=== PATIENT | male | born 1990 | race Caucasian/White ===

== ENCOUNTER 2022-03-13 02:50 | Emergency (ER) | payer OTHER, SELFPAY ==
--- NOTE | ~2022-03-13 | XR_ITS ---
EXAMINATION: XR CHEST CLINICAL INFORMATION: Cough COMPARISON: 02/13/2019 TECHNIQUE: Frontal view of the chest was obtained. FINDINGS: Lung volumes are low. Patchy retrocardiac opacity. No pleural effusion or pneumothorax. The cardiomediastinal silhouette is unchanged. XR/XR chest 1V IMPRESSION: Low lung volumes. Patchy retrocardiac opacity could represent atelectasis or pneumonia.
[2022-03-13 02:57] VITALS: BP 115/85; BP 133/76; PULSE 100; TEMP 36.6; O2SAT 99; BMI 29.7
--- NOTE | 2022-03-13 03:03 | ED_ITS ---
HPI - Overdose General Chief Complaint: Overdose Stated Complaint: OD Time Seen by Provider: 03/13/22 03:02 Source: EMS Mode of arrival: EMS History of Present Illness HPI Narrative: Patient with history of substance abuse per records uses PCP was found sitting in a car unresponsive was given 12 mg of Narcan intranasally patient woke up denies use of opiates no signs of injury per patient's friend patient did not use PCP today and he was sitting with drug addict in the car Related Data Allergies Allergy/AdvReac Type Severity Reaction Status Date / Time No Known Allergies Allergy Unverified 11/09/19 16:19 Review of Systems Review of Systems: Yes all other systems are reviewed and are negative [facility] Social History Social History Alcohol intake: current Smoked in Last 30 Days: Yes Use of substances other than those prescribed or required for medical reasons: Yes Substance Use Type: Crack/Cocaine and Marijuana Advance Directives: No Advance Directives Information Provided: Yes Physical Exam Vital Signs: Vital Signs: Last Vital Signs Temp 98.2 F 03/13/22 03:37 Pulse 91 03/13/22 03:37 Resp 20 03/13/22 03:37 BP 117/82 03/13/22 03:37 Pulse Ox 96 03/13/22 03:37 O2 Del Method 03/13/22 03:37 BMI result Body Mass Index 29.7 Appearance: Alert. And awake. No acute distress. Eyes: PERRLA, No Nystagmus ENT: Pharynx normal. Oral Mucosa moist Neck: Normal inspection. Neck supple. CVS: Normal heart rate and rhythm. Pulses normal. Respiratory: No respiratory distress. Equal air entry bilateral, no wheezing/rales/rhonchi Abdomen: Soft and nontender. Bowel sounds are present, no mass palpable, no CVA tenderness Skin: Skin warm and dry. Normal skin color. Normal skin turgor. No IVDA baum Extremities: No lower extremity edema. No calf tenderness Neuro: Alert and awake No motor deficit. Medical Decision Making Differential Diagnosis Patient polysubstance abuse denied the use but was sitting with someone who uses drugs and was given to him at this time patient on x3 ambulatory patient patient home with family Lab Data [facility] Lab Attestation statement: I reviewed the patient's lab results. Labs: Lab Results 03/13/22 03/13/22 03/13/22 Range/Units 03:30 03:30 03:30 Urine Opiates Screen Not Detected (Not Detect) Urine Fentanyl Screen POSITIVE H (Not Detect) Ur Barbiturates Screen Not Detected (Not Detect) Ur Phencyclidine Scrn POSITIVE H (Not Detect) Ur Amphetamines Screen Not Detected (Not Detect) U Benzodiazepines Scrn Not Detected (Not Detect) Urine Cocaine Screen POSITIVE H (Not Detect) U Marijuana (THC) Screen POSITIVE H (Not Detect) COVID-19 ([place]) Negative (Negative) COVID-19 Clin Com See Note Influenza Type A (LILIYA) Negative (Negative) Influenza Type B (LILIYA) Negative (Negative) Influenza A & B Note See Note Discharge Plan Discharge Clinical Impression: Drug overdose Patient Disposition: Home, Self-Care Additional Instructions: Your urine was positive for PCP, cocaine, fentanyl, and marijuana Stop using drugs follow with Detox Interventions: [place]-Suicide Risk Severity Scale Last Done: 03/13/22 04:42 ED Discharge Assessment Last Done: 03/13/22 04:43 Discharge Date/Time: 03/13/22 04:42
--- NOTE | 2022-03-13 03:30 | MHC.EDTECH ---
brother Joselito [phone], please call upon D/C for ride home.
[2022-03-13 03:37] VITALS: BP 117/82; PULSE 91; RESP 20; TEMP 36.8; O2SAT 96
--- NOTE | 2022-03-13 03:41 | PC.NURSE ---
Addendum entered by Deisy Daniel 03/13/22 03:43: pt able to maintain airway Original Note: upon arrival pt unable to answer questions, cold to the touch, body tremors
[2022-03-13 03:49] LABS: Amphetamine Screen Urine Not Detected (Not Detect); Barbiturates, Urine Not Detected (Not Detect); Benzodiazepines Screen Urine Not Detected (Not Detect); Cannabinoid Screen Urine POSITIVE (Not Detect); Cocaine Screen Urine POSITIVE (Not Detect); Fentanyl, urine POSITIVE (Not Detect); Opiate Screen Urine Not Detected (Not Detect); Phencyclidine Screen Urine POSITIVE (Not Detect)
[2022-03-13 03:50] LABS: COVID-19 Test Negative (Negative); IDNOW Serial# 16C4AD1C; IDNOW Serial# BCCEAD1C; Influenza A Negative (Negative); Influenza B2 Negative (Negative)
--- NOTE | 2022-03-13 04:44 | PC.NURSE ---
discharge instructions given and explained, pt ambulates safely/independently; no apparent distress
--- NOTE | 2022-03-13 04:58 | PC.NURSE ---
pt alert and oriented
== END 2022-03-13 04:42 | disposition home or self-care (01) ==
PROVIDERS: Emergency Provider Internal Medicine
DX: R40.20 Unspecified coma (principal); T40.991A Poisoning by other psychodysleptics [hallucinogens], accidental (unintentional), initial encounter; T40.5X1A Poisoning by cocaine, accidental (unintentional), initial encounter; T40.411A Poisoning by fentanyl or fentanyl analogs, accidental (unintentional), initial encounter; F14.10 Cocaine abuse, uncomplicated; F16.10 Hallucinogen abuse, uncomplicated; F11.10 Opioid abuse, uncomplicated; Y92.9 Unspecified place or not applicable; Z20.822 Contact with and (suspected) exposure to COVID-19
CPT/HCPCS: 71045; 80307; 87502; 87635; 99283; 99285

== ENCOUNTER 2024-03-05 19:44 | Emergency (ER) | payer MEDICAID, SELFPAY ==
[2024-03-05 19:47] VITALS: BP 148/64; PULSE 105; O2SAT 100; BMI 28.5
--- NOTE | 2024-03-05 20:08 | MHC.EDTECH ---
Patient changed over into [facility] gown. patient belongings on shelf 1 in [facility]
--- NOTE | 2024-03-05 20:21 | ED.OVERDOSE ---
HPI - Overdose General Chief Complaint: Overdose Stated Complaint: OD, 8MG NARCAN, COOPERATIVE PER EMS Time Seen by Provider: 03/05/24 19:54 History of Present Illness HPI Narrative: Patient is a 33-year-old homeless male. History of being found in an alley unresponsive. Had irregular respiration and was given 8 of Narcan. Patient claims that he was drinking alcohol. Also using what he thought was PCP. Patient denies using heroin. Claims that he sniffed the stuff. Never shooting drugs. Related Data Allergies Allergy/AdvReac Type Severity Reaction Status Date / Time No Known Allergies Allergy Verified 03/05/24 19:50 Review of Systems Review of Systems: No chest pain or shortness breath no dizziness PMFSH Past Medical History Attestation statement: The following information was validated with the patient. Social History Social History Alcohol intake: current Smoked in Last 30 Days: Yes Substance Use Type: Opiates Substance Use Frequency: Chronic Longstanding Do you have a plan to hurt others: No Plan Physical Exam Vital Signs: Vital Signs: BMI result Body Mass Index 28.5 Appearance: Alert. Oriented X3. No acute distress. Eyes: Pupils equal, round and reactive to light. ENT: Pharynx normal. Neck: Normal inspection. Neck supple. No lymph nodes noted. No crepitus CVS: Normal heart rate and rhythm. Pulses normal. Normal S1 and S2 Respiratory: No respiratory distress. Breath sounds normal. No Wheezing. No rales Abdomen: Soft and nontender. No rigidity. No distention. good BS x4 Skin: Skin warm and dry. Normal skin color. Normal skin turgor. Extremities: No lower extremity edema. Neurovascular intact to all extremities. No Lacerations. No Rash Neuro: Oriented X 3. No motor deficit. No sensory deficit. Moving all extermities. No slurred speech Medical Decision Making Medical Decision Making MDM Narrative: Patient history of polysubstance abuse. Woke up with Narcan. Question if patient actually took heroin instead of PCP. Patient in no acute distress is homeless. Breathing comfortably. O2 sat is normal. Labs are sent. Narcan was ordered to take home. Will await patient's sobering and monitor patient for at least 2 hours after Narcan use. Patient in no distress. No suicidal homicidal ideation. Use recreational drugs for recreational purposes only. Patient does not want detox at this time Differential Diagnosis Differential Diagnoses: The differential diagnosis associated with the presentation includes Polysubstance abuse, heroin use, PCP use, alcohol use Admission/Observation Consideration of admission/observation: Escalation of care including admission/observation considered Lab Data MDM Lab Attestation statement: I reviewed the patient's lab results. Chronic Conditions Polysubstance abuse Social Determinants Patient?s care significantly limited by Social Determinants of Health including: Alcoholism and drug addiction in family and Problems related to primary support group Discharge Plan Discharge Clinical Impression: Drug overdose, Alcohol intoxication Patient Disposition: Still a Patient Print Language: Tristanian
[2024-03-05 20:34] LABS: MANUAL DIFF FLAG NO
[2024-03-05 20:41] LABS: Basophils Absolute Auto 0.1 X10*3/uL (0.0-0.2); Eosinophils Absolute Auto 0.1 X10*3/uL (0.0-0.4); Eosinophils Percent Auto 1.6 % (0-4); Hematocrit 42.5 % (42.0-52.0); Hemoglobin 14.3 g/dl (14.0-18.0); Imm Gran Abs Auto 0.02 X10*3/uL (0.00-0.03); Imm Gran Pct Auto 0.3 % (0.0-0.4); Lymphocytes Absolute Auto 0.8 X10*3/uL (1.2-4.9); Lymphocytes Percent Auto 11.9 % (20-40); Mean Corpuscular HGB Conc 33.6 g/dl (31.0-36.0); Mean Corpuscular Hemoglobin 25.8 pg (27.0-33.0); Mean Corpuscular Volume 76.7 fL (80.0-98.0); Mean Platelet Volume 9.3 fL (9.4-12.4); Monocytes Absolute Auto 0.6 X10*3/uL (0.1-1.2); Monocytes Percent Auto 8.4 % (2-11); Neutrophils Absolute Auto 5.4 x10*3/uL (2.0-8.3); Neutrophils Percent Auto 76.8 % (45-73); Platelet Count 414 X10*3/uL (160-400); Red Blood Count 5.54 X10*6/uL (4.60-5.80); Red Cell Distribution Width 13.9 % (11.0-16.0); White Blood Count 7.1 X10*3/uL (4.8-10.8)
[2024-03-05 21:05] LABS: Ethanol < 10 mg/dL
[2024-03-05 21:07] LABS: Alanine Aminotransferase 28 U/L (0-40); Albumin Level 4.1 g/dL (3.5-5.0); Alkaline Phosphatase 72 U/L (39-117); Anion Gap 12 (12-20); Aspartate Amino Transferase 27 U/L (5-37); Bilirubin Total 0.3 mg/dL (0.0-1.0); Blood Urea Nitrogen 12 mg/dL (9-16); Carbon Dioxide 23 mmol/L (22-29); Chloride 110 mmol/L (96-108); Creatinine Clr Calc Pharmacy 139.8; Estimated Glomerular Filt Rate > 60; Glucose Random 89 mg/dL (60-115); Potassium 3.8 mmol/L (3.3-5.1); Sodium 141 mmol/L (135-145); Total Protein 6.6 g/dL (6.5-8.0)
[2024-03-05 21:11] LABS: Acetaminophen LAB < 3 mcg/mL (<30); Salicylate < 5.0 mg/dL (15-30)
[2024-03-05] MEDS: Naloxone HCl Nasal TAKE HOME 4 MG SPRAY 8 MG NOSTRILALT (21:13)
[2024-03-05 21:16] LABS: Amphetamine Screen Urine Not Detected (Not Detect); Barbiturates, Urine Not Detected (Not Detect); Benzodiazepines Screen Urine Not Detected (Not Detect); Buprenorphine Scr Not Detected (Not Detect); Cannabinoid Screen Urine POSITIVE (Not Detect); Cocaine Screen Urine POSITIVE (Not Detect); Fentanyl, urine Not Detected (Not Detect); Methadone Screen, Urine Not Detected (Not Detect); Opiate Screen Urine Not Detected (Not Detect); Oxycodone Screen Urine Not Detected (Not Detect); Phencyclidine Screen Urine POSITIVE (Not Detect)
[2024-03-05 21:23] VITALS: BP 139/69; PULSE 88; RESP 16; TEMP 36.8; O2SAT 98
[2024-03-05 21:46] LABS: Influenza A PCR NEGATIVE (Negative); Influenza B PCR NEGATIVE (Negative); Resp Syncy Virus RNA Qual PCR NEGATIVE (Negative); SARS COV2 PCR INHOUSE NEGATIVE (Negative)
== END 2024-03-05 21:30 | disposition home or self-care (01) ==
PROVIDERS: Emergency Provider Emergency Medicine Emergency Medical Services
DX: T40.991A Poisoning by other psychodysleptics [hallucinogens], accidental (unintentional), initial encounter (principal); R40.4 Transient alteration of awareness; Y92.410 Unspecified street and highway as the place of occurrence of the external cause; F10.129 Alcohol abuse with intoxication, unspecified; Y90.9 Presence of alcohol in blood, level not specified; Z59.00 Homelessness unspecified; Z51.81 Encounter for therapeutic drug level monitoring; Z03.818 Encounter for observation for suspected exposure to other biological agents ruled out; Z79.899 Other long term (current) drug therapy
CPT/HCPCS: 0241U; 36415; 80053; 80143; 80179; 80307; 85025; 99285

== ENCOUNTER 2024-03-20 18:38 | Emergency (ER) | payer MEDICAID, SELFPAY ==
[2024-03-20 19:06] VITALS: BP 154/83; PULSE 121; O2SAT 97
[2024-03-20 19:27] VITALS: BP 117/86; PULSE 104; RESP 16; TEMP 36.4; O2SAT 100; BMI 27.9
--- NOTE | 2024-03-20 19:38 | ED.FALL ---
HPI - Fall General Chief Complaint: Fall Stated Complaint: ETOH Time Seen by Provider: 03/20/24 19:35 Source: patient Limitations: no limitations History of Present Illness ED Provider: Janiya Lipscomb PA-C HPI Narrative: 33-year-old male presents after a fall. Patient states he slipped on the ice and subsequently fell. There was no head strike. Patient was ambulatory after the incident. A bystander called EMS. The patient admits to drinking alcohol. Patient has no physical concerns or complaints at this time Related Data Allergies Allergy/AdvReac Type Severity Reaction Status Date / Time No Known Allergies Allergy Verified 03/20/24 19:28 Review of Systems Review of Systems: Yes all other systems are reviewed and are negative Constitutional: Constitutional: Denies fatigue, Denies fever(s) and Denies headache(s) ENT: Denies headache(s) and Denies neck pain Cardiovascular: Cardiovascular: Denies chest pain and Denies dyspnea Respiratory: Respiratory: Denies dyspnea Gastrointestinal: Gastrointestinal: Denies abdominal pain Musculoskeletal: Musculoskeletal: Denies back pain and Denies neck pain Neurologic: Denies headache(s) Endocrine: Endocrine: Denies fatigue [facility] Past Medical History Attestation statement: The following information was validated with the patient. Social History Social History Alcohol intake: current Substance Use Type: Opiates Do you have a plan to hurt others: No Plan Physical Exam Vital Signs: Vital Signs: Last Vital Signs Temp 97.5 F 03/20/24 19:27 Pulse 104 H 03/20/24 19:27 Resp 16 03/20/24 19:27 BP 117/86 03/20/24 19:27 Pulse Ox 100 03/20/24 19:27 O2 Del Method Room Air 03/20/24 19:27 BMI result Body Mass Index 27.9 Const: Other: Alert, well-appearing no evidence of head trauma on exam Orientation/consciousness: patient oriented x3 HEENT: Other: No alcohol halitosis Resp: Effort & Inspection: normal respiratory effort Cardio: Other: Normal peripheral perfusion Skin: Other: Warm dry no rash Neuro: Other: Patient has been ambulating with normal steady gait, he is clinically sober in appearance General: patient oriented x3, gait normal, no focal motor deficits and CN's II-XI intact bilaterally Psych: Other: Calm cooperative Medical Decision Making Medical Decision Making MDM Narrative: 33-year-old male presents after a fall. Patient states he slipped on the ice and subsequently fell. There was no head strike. Patient was ambulatory after the incident. A bystander called EMS. The patient admits to drinking alcohol. Patient has no physical concerns or complaints at this time No relevant chronic issues History: Per patient I have considered the following differential diagnoses: Alcohol intoxication, fracture, dislocation, intracranial hemorrhage Plan: Patient was clinically sober he has been ambulatory since he has arrived, he is completely alert and oriented without alcohol halitosis, there is no evidence of head trauma on exam. I am not holding him here he does not require a medical assessment Discharge Plan Discharge Clinical Impression: Fall from slipping on ice Patient Disposition: Home, Self-Care Print Language: Albanian
[2024-03-20 19:57] VITALS: BP 117/86; PULSE 104; RESP 16; TEMP 36.4; O2SAT 100
--- OUTSIDE RECORDS SUMMARY | 2024-03-20 20:12 | XMS_ITS | Clinical Summary ---
Author Organization [facility] Address [address] [place] [address] Care Team Providers Care Network Professional Name Role Phone Unavailable Primary Care Provider Unavailabl e Source Comments PLEASE NOTE, if this patient is a minor, it may be UNLAWFUL to discuss sensitive information that is contained in these records (such as FAMILY PLANNING, MENTAL HEALTH or SUBSTANCE ABUSE) with the minor patient's parent or other person without the patient's specific authorization.[facility] Allergies No known active allergies Medications No known medications Active Problems No known active problems Social History Tobacco Use Types Packs/Day Years Used Date Smoking Tobacco: Never Smokeless Tobacco: Never Tobacco Cessation:Counseling Given: Not Answered Social Connections Answer Date Recorded Connectedness 0 12/28/2023 Financial Resource Strain Answer Date R ecorded Financial Resource Strain 0 2023 Stress Answer Date Recorded Stress 0 12/28/2023 Physical Activity Answer Date Recorded Physical Activity 0 12/28/2023 Food Insecurity Answer Date Recorded Food 0 12/28/2023 Transportation Needs Answer Date Record ed Transportation 0 12/28/2023 Housing Stability Answer Date Recorded Housing 0 12/28/2023 Safety and Environment Answer Date Jon rded Safety 0 12/28/2023 Utilities Answer Date Recorded Utilities 0 12/28/2023 Employment Answer Date Recorded Stress 0 12/28/2023 Sex and Gender Information Value Date Recorded Sex Assigned at Not on file Legal Sex Male 8:52 AM PDT Gender Identity Not on file Sexual Orientation Not on file Last Filed Vital Signs Vital Sign Reading Time Taken Comments Blood Pressure 197/103 03/04/2022 10:42 AM EST Pulse 85 03/04/2022 10:42 AM EST Temperature - - Respiratory Rate - - Oxygen Saturation - - Inhaled Oxygen Concentration - - Weight - - Height - - Body Mass Index - - Plan of Treatment Health Maintenance Due Date Last Done Comments Dental FMX/Pano 1989 Dental Prophy 1989 Hepatitis C Screening 1989 Tobacco Screening 1989 HIV Screening 2004 Annual Preventive Care Visit 08/01/2007 Imm-DTaP/Tdap/Td (1 - Tdap) 2008 Imm-Hepatitis B (1 of 3 - 19+ 3-dose series) 9 Dental BW 09/25/2022 09/23/2021 Dental Examination 09/25/2022 09/23/2021 Dental Perio Charting 09/25/2022 09/23/2021 Hypertension Screening (#1) 03/04/2023 [id number] ( season) 2023 Imm-Influenza (#1) 2023 Alcohol and Drug Screen 02/23/2024 Depression Annual Screen 02/23/2024 Procedures Procedure Name Priority Date/Time Associated Diagnosis Comments COMP PERIODONTAL EVALUATION - NEW/EST PATIENT Routine 09/23/2021 9:00 AM EDT Gingivitis, chronic, plaque induced BITEWINGS - FOUR RADIOGRAPHIC IMAGES Routine 09/23/2021 9:00 AM EDT Gingivitis, chronic, plaque induced PERIODIC ORAL EVALUATION ESTABLISHED PATIENT Routine 09/23/2021 9:00 AM EDT Gingivitis, chronic, plaque induced from Last 3 Months or Most Recently Relevant to Health Maintenance Insurance [address] [employer]
== END 2024-03-20 19:58 | disposition home or self-care (01) ==
PROVIDERS: Emergency Provider Emergency Medicine
DX: F10.90 Alcohol use, unspecified, uncomplicated (principal); Y90.9 Presence of alcohol in blood, level not specified; Z91.81 History of falling
CPT/HCPCS: 99282